=== PATIENT | female | born 1930 | race Caucasian/White ===

== ENCOUNTER 2017-02-23 13:10 | Inpatient (IN) | payer MEDICARE, BC ==
[2017-02-23] MEDS ORDERED: Sodium Chloride 0.9% 10 ML Syringe FLUSH PRN (13:18)
[2017-02-23] MEDS ORDERED: Sodium Chloride 0.9% 1,000 ML IV ONE (13:19)
--- NOTE | 2017-02-23 13:20 | EDM.PDOC ---
ED HPI GENERAL MEDICAL PROBLEM - General Chief Complaint: Neuro Symptoms/Deficits Stated Complaint: [facility] Time Seen by Provider: 02/23/17 13:17 Source of Information: Reports: Patient History Limitations: Reports: Altered Mental Status - History of Present Illness INITIAL COMMENTS - FREE TEXT/NARRATIVE: The patient is an 86-year-old female with a history of atrial fibrillation who is brought in by EMS after being found down at home. She apparently didn't show up to breakfast with friends today. When EMS arrived to her house, she was found wedged between the bed and the wall. She was covered in urine and it appeared that she had been stuck there for some time. She hasn't been able to speak which greatly limits the history. According to family, she was last seen normal on Thursday the review of her cellphone suggests that she was able to use her phone on Thursday which is 2 days ago. According to EMS, she seems like she is weak on the right side and is only intermittently following commands and has been awake but hasn't been able to speak, EMS states that she was at sometimes shaking her head yes or no to their questions. - Related Data Allergies Allergy/AdvReac Type Severity Reaction Status Date / Time Penicillins Allergy Cannot Verified 02/23/17 13:21 Remember quinidine Allergy Other Verified 02/23/17 13:20 Home Meds: Home Meds ALPRAZolam [Xanax] 0.5 mg PO BID PRN 09/11/14 [History] Ascorbate Calcium [Vitamin C] 500 tab PO DAILY 09/11/14 [History] Aspirin [Adult Low Dose Aspirin EC] 81 mg PO BEDTIME 09/11/14 [History] Atenolol 25 mg PO DAILY 09/11/14 [History] Calcium Carbonate/Vitamin D3 [Calcium 600 + Vit D 400] 1 tab PO DAILY 09/11/14 [ History] Glucosa Denton 2KCl/Chondroitin Denton [Glucosamine-Chondroitin Cap] 1 cap PO DAILY [History] Levothyroxine [Synthroid] 100 mcg PO DAILY 09/11/14 [History] Losartan [Cozaar] 50 mg PO DAILY 09/11/14 [History] Multivitamin [Multivitamins] 1 cap PO DAILY 09/11/14 [History] Sertraline [Zoloft] 100 mg PO DAILY 09/11/14 [History] Rivaroxaban [Xarelto] 10 mg PO BEDTIME 10/21/14 [History] Pantoprazole Sodium [Protonix] 40 mg PO DAILY 02/23/17 [History] Pravastatin [Pravachol] 10 mg PO BEDTIME 02/23/17 [History] Social & Family History - Tobacco Use Smoking Status *Q: Never Smoker Years of Tobacco use: 1 Used Tobacco, but Quit: Yes Month Tobacco Last Used: Second Hand Smoke Exposure: No - Alcohol Use Days Per Week of Alcohol Use: 0 - Recreational Drug Use Recreational Drug Use: No ED ROS GENERAL - Review of Systems Review Of Systems: Unable To Obtain ED EXAM, NEURO - Physical Exam Exam: See Below Exam Limited By: Altered Mental Status General Appearance: Other (Awake, not able to speak, not following commands at this time) Eye Exam: Bilateral Eye: PERRL Ears: Normal External Exam Nose: Normal Inspection Throat/Mouth: Other (Very dry mucous membranes) Head Exam: Atraumatic, Normocephalic Neck: Other (C-collar in place) Respiratory/Chest: No Respiratory Distress, Lungs Clear, Normal Breath Sounds, No Accessory Muscle Use, Chest Non-Tender Cardiovascular: No Edema, Tachycardia, Irregularly Irregular GI/Abdominal: Soft, Non-Tender, No Distention. No: Rebound Neurological: Alert, Other (Awake, she does not cooperate with the exam and is not following commands at this time, no speech, right upper extremity and right lower extremity are both flaccid. She does have some movement observed of the left upper and lower extremities, antigravity. +R facial droop) Back Exam: Normal Inspection Extremities: Other (Scattered abrasions on the posterior surface of her left hand, abrasions to the fingers) Skin Exam: Warm, Dry, Intact, No Rash Course - Orders/Labs/Meds Orders: Active Orders 24 hr Category Date Time Status EKG 12 Lead [EKG Documentation Completion] [RC] STAT Care 02/23/17 13:18 Active Peripheral IV Care [RC] . DIRECTED Care 02/23/17 13:18 Active Hip wo Cont Rt [CT] Stat Exams 02/23/17 16:46 Taken Sodium Chloride 0.9% [Normal Saline] 100 ml Med 02/23/17 14:30 Active IV ASDIRECTED Sodium Chloride 0.9% [Saline Flush] Med 02/23/17 13:18 Active 10 ml FLUSH ASDIRECTED PRN Peripheral IV Insertion Adult [OM.PC] Routine Oth 02/23/17 13:18 Ordered Medication Orders Sodium Chloride (Normal Saline) 100 mls @ 60 mls/hr IV ASDIRECTED ALYSON Last Admin: 02/23/17 15:39 Dose: 60 mls/hr Sodium Chloride (Saline Flush) 10 ml FLUSH ASDIRECTED PRN PRN Reason: Keep Vein Open Last Admin: 02/23/17 14:00 Dose: 10 ml Labs: Laboratory Tests 02/23/17 02/23/17 02/23/17 Range/Units 13:32 13:32 13:32 WBC 11.23 H (3.98-10.04) K/mm3 RBC 4.73 (3.98-5.22) M/mm3 Hgb 13.8 (11.2-15.7) gm/L Hct 39.2 (34.1-44.9) % MCV 82.9 (79.4-94.8) fl MCH 29.2 (25.6-32.2) pg MCHC 35.2 (32.2-35.5) g/dl RDW Std Deviation 47.9 H (36.4-46.3) fL Plt Count 244 (182-369) K/mm3 MPV 10.2 (9.4-12.3) fl Neut % (Auto) 89.4 H (34.0-71.1) % Lymph % (Auto) 2.9 L (19.3-51.7) % Hodgeman % (Auto) 7.4 (4.7-12.5) % Eos % (Auto) 0 L (0.7-5.8) Baso % (Auto) 0.1 (0.1-1.2) % Neut # (Auto) 10.04 H (1.56-6.13) K/mm3 Lymph # (Auto) 0.33 L (1.18-3.74) K/mm3 Hodgeman # (Auto) 0.83 H (0.24-0.36) K/mm3 Eos # (Auto) 0.00 L (0.04-0.36) K/mm3 Baso # (Auto) 0.01 (0.01-0.08) K/mm3 Manual Slide Review Abnormal smear PT 11.1 (8.0-13.0) SECONDS INR 1.02 Sodium 131 L (136-145) mEq/L Potassium 3.6 (3.5-5.1) mEq/L Chloride 93 L (98-107) mEq/L Carbon Dioxide 27 (21-32) mEq/L Anion Gap 14.6 (5-15) BUN 25 H (7-18) mg/dL Creatinine 0.8 (0.55-1.02) mg/dL Est Cr Clr Drug Dosing TNP Estimated GFR (MDRD) > 60 (>60) mL/min BUN/Creatinine Ratio 31.3 H (14-18) Glucose 117 H (83-115) mg/dL Calcium 8.3 L (8.5-10.1) mg/dL Magnesium 2.2 (1.8-2.4) mg/dl Total Bilirubin 1.3 H (0.2-1.0) mg/dL AST 60 H (15-37) U/L ALT 70 H (14-59) U/L Alkaline Phosphatase 87 (46-116) U/L Creatine Kinase 754 H (26-192) U/L Troponin I 0.019 (0.00-0.056) ng/mL NT-Pro-B Natriuret Pep 5417 H (0-450) pg/mL Total Protein 7.4 (6.4-8.2) g/dl Albumin 3.3 L (3.4-5.0) g/dl Globulin 4.1 gm/dL Albumin/Globulin Ratio 0.8 L (1-2) Urine Color (Yellow) Urine Appearance (Clear) Urine pH (5.0-8.0) Ur Specific Opdyke (1.005-1.030) Urine Protein (Negative) Urine Glucose (UA) (Negative) Urine Ketones (Negative) Urine Occult Blood (Negative) Urine Nitrite (Negative) Urine Bilirubin (Negative) Urine Urobilinogen (0.2-1.0) Ur Leukocyte Esterase (Negative) Urine RBC (0-5) /hpf Urine WBC (0-5) /hpf Ur Epithelial Cells (0-5) /hpf Amorphous Sediment (NOT SEEN) /hpf Urine Bacteria (FEW) /hpf Fine Granular Casts (0-5) /lpf Coarse Granular Casts (0-5) /hpf Urine Mucus (FEW) /hpf 02/23/ Range/Units 15:44 WBC (3.98-10.04) K/mm3 RBC (3.98-5.22) M/mm3 Hgb (11.2-15.7) gm/L Hct (34.1-44.9) % MCV (79.4-94.8) fl MCH (25.6-32.2) pg MCHC (32.2-35.5) g/dl RDW Std Deviation (36.4-46.3) fL Plt Count (182-369) K/mm3 MPV (9.4-12.3) fl Neut % (Auto) (34.0-71.1) % Lymph % (Auto) (19.3-51.7) % Hodgeman % (Auto) (4.7-12.5) % Eos % (Auto) (0.7-5.8) Baso % (Auto) (0.1-1.2) % Neut # (Auto) (1.56-6.13) K/mm3 Lymph # (Auto) (1.18-3.74) K/mm3 Hodgeman # (Auto) (0.24-0.36) K/mm3 Eos # (Auto) (0.04-0.36) K/mm3 Baso # (Auto) (0.01-0.08) K/mm3 Manual Slide Review PT (8.0-13.0) SECONDS INR Sodium (136-145) mEq/L Potassium (3.5-5.1) mEq/L Chloride (98-107) mEq/L Carbon Dioxide (21-32) mEq/L Anion Gap (5-15) BUN (7-18) mg/dL Creatinine (0.55-1.02) mg/dL Est Cr Clr Drug Dosing Estimated GFR (MDRD) (>60) mL/min BUN/Creatinine Ratio (14-18) Glucose (83-115) mg/dL Calcium (8.5-10.1) mg/dL Magnesium (1.8-2.4) mg/dl Total Bilirubin (0.2-1.0) mg/dL AST (15-37) U/L ALT (14-59) U/L Alkaline Phosphatase (46-116) U/L Creatine Kinase (26-192) U/L Troponin I (0.00-0.056) ng/mL NT-Pro-B Natriuret Pep (0-450) pg/mL Total Protein (6.4-8.2) g/dl Albumin (3.4-5.0) g/dl Globulin gm/dL Albumin/Globulin Ratio (1-2) Urine Color Yellow (Yellow) Urine Appearance Clear (Clear) Urine pH 6.5 (5.0-8.0) Ur Specific [place] 1.025 (1.005-1.030) Urine Protein 3+ H (Negative) Urine Glucose (UA) Negative (Negative) Urine Ketones 2+ H (Negative) Urine Occult Blood 2+ H (Negative) Urine Nitrite Negative (Negative) Urine Bilirubin 1+ H (Negative) Urine Urobilinogen 0.2 (0.2-1.0) Ur Leukocyte Esterase Negative (Negative) Urine RBC 10-20 H (0-5) /hpf Urine WBC 0-5 (0-5) /hpf Ur Epithelial Cells 0-5 (0-5) /hpf Amorphous Sediment Few H (NOT SEEN) /hpf Urine Bacteria Few (FEW) /hpf Fine Granular Casts 0-5 (0-5) /lpf Coarse Granular Casts 0-5 (0-5) /hpf Urine Mucus Few (FEW) /hpf Meds: Medications Generic Name Dose Route Start Last Admin Trade Name Freq PRN Reason Stop Dose Admin Sodium Chloride 100 mls @ 60 mls/hr 02/23/17 14:30 02/23/17 15:39 Normal Saline IV 60 mls/hr ASDIRECTED ALYSON Administration Sodium Chloride 10 ml 02/23/17 13:18 02/23/17 14:00 Saline Flush FLUSH 10 ml ASDIRECTED PRN Administration Keep Vein Open Discontinued Medications Generic Name Dose Route Start Last Admin Trade Name Freq PRN Reason Stop Dose Admin Diltiazem HCl 10 mg 02/23/17 14:21 02/23/17 14:31 Diltiazem IVPUSH 02/23/17 14:22 10 mg ONETIME ONE Administration Fentanyl 25 mcg 02/23/17 16:11 02/23/17 16:16 Sublimaze IVPUSH 02/23/17 16:12 25 mcg ONETIME ONE Administration Fentanyl 25 mcg 02/23/17 18:20 02/23/17 18:25 Sublimaze IVPUSH 09/25/17 18:21 25 mcg ONETIME ONE Administration Gadobenate Dimeglumine 15 ml 02/23/17 15:21 02/23/17 15:39 Multihance IVPUSH 02/23/17 15:22 15 ml ONETIME ONE Administration Sodium Chloride 1,000 mls @ 1,000 mls/hr 02/23/17 13:19 02/23/17 13:49 Normal Saline IV 02/23/17 14:18 1,000 mls/hr ONETIME ONE Administration Iopamidol 100 ml 02/23/17 14:23 02/23/17 15:39 Isovue-370 (76%) IVPUSH 02/23/17 14:24 100 ml ONETIME ONE Administration Sodium Chloride 10 ml 02/23/17 14:23 02/23/17 15:39 Saline Flush FLUSH 02/23/17 14:24 10 ml ONETIME ONE Administration - Re-Assessments/Exams Free Text/Narrative Re-Assessment/Exam: 02/23/17 14:29 CT head on my read shows some loss of the roque-white differentiation in the left MCA distribution. Her mediastinum looks wide on portable chest x-ray, it does look different compared to prior, we will scan chest to rule out dissection. Her creatinine is normal. Also review of her pelvis fracture shows a right femoral neck fracture. Dedicated hip x-rays ordered. Family updated. 02/23/17 17:58 MRI shows multiple areas of diffusion abnormalities within the left basal ganglia and left thalamus as well as the left frontal temporal and parietal regions compatible with fairly acute multifocal infarcts in the distribution of the MCA as well as is within the deep lenticulostriate arteries there is increased signal on the FLAIR sequence within these findings compatible with irreversible infarcts according to the radiology read. Low signal in the diffusion sequence and within a gradient echo sequence within the basal ganglia on the left side compatible with slight areas of hemorrhage which are felt to be small and below the resolution of the CT. I discussed these results with the family. Given that the patient has last known well time of 2 days ago and evidence of irreversible infarction on the MRI the patient is really not a candidate for any intervention for her stroke. Care will be supportive at this time. X-ray of the right pelvis shows the right hip is significantly internally rotated making it difficult to exclude a femoral neck fracture. I discussed with radiologist Dr. Medeiros who agrees a CT scan would be needed to rule out an occult fracture. Discussed with Dr. Cain who agrees to admit the patient for further care. Chest x-ray shows no acute abnormality. EKG shows atrial fibrillation, 02/23/17 18:54 Departure - Departure Time of Disposition: 18:02 Disposition: Admitted As Inpatient 67 Clinical Impression: Stroke due to embolism of left middle cerebral artery, Dysarthria, Mild dehydration, Atrial fibrillation with rapid ventricular response - Discharge Information - My Orders Last 24 Hours: My Active Orders 02/23/17 13:18 EKG 12 Lead [EKG Documentation Completion] [RC] STAT Peripheral IV Care [RC] . DIRECTED Sodium Chloride 0.9% [Saline Flush] 10 ml FLUSH ASDIRECTED PRN Peripheral IV Insertion Adult [OM.PC] Routine 02/23/17 14:30 Sodium Chloride 0.9% [Normal Saline] 100 ml IV ASDIRECTED 02/23/17 16:46 Hip wo Cont Rt [CT] Stat - Assessment/Plan Last 24 Hours: My Active Orders 02/23/17 13:18 EKG 12 Lead [EKG Documentation Completion] [RC] STAT Peripheral IV Care [RC] . DIRECTED Sodium Chloride 0.9% [Saline Flush] 10 ml FLUSH ASDIRECTED PRN Peripheral IV Insertion Adult [OM.PC] Routine 02/23/17 14:30 Sodium Chloride 0.9% [Normal Saline] 100 ml IV ASDIRECTED 02/23/17 16:46 Hip wo Cont Rt [CT] Stat
--- NOTE | 2017-02-23 13:46 | CT ---
Head CT Technique: Multiple axial sections through the brain were obtained. Intravenous contrast was not utilized. Comparison: Previous MRI brain of 04/10/14, no previous head CT study. Findings: Ventricles along with basal cisterns and sulci over convexities are mildly prominent. Mild diminished density is noted within portions of the periventricular, subcortical white matter and within portions of the basal ganglia. Slight increased density is noted within the head of the caudate nuclei both sides believed to be made more prominent due to small vessel ischemic demyelination change surrounding the thalami. No other abnormal parenchymal densities are seen. No evidence of intracranial hemorrhage. No midline shift or mass effect is seen. Bone window settings were reviewed which shows mild mucosal thickening within the ethmoid and frontal sinuses. No acute calvarial abnormality is identified. Impression: 1. Senescent change as described above. No acute intracranial abnormality is seen. If patient's symptoms warrant further evaluation, MRI brain could be considered. Diagnostic code #2
--- NOTE | 2017-02-23 13:48 | CT ---
CT cervical spine Technique: Multiple axial sections were obtained from above C1 inferiorly to below T1. Reconstructed sagittal and coronal images were reviewed. Findings: Mild scattered disc space narrowing is seen. Diffuse degenerative apophyseal change is seen throughout the cervical spine. Degenerative change within the uncovertebral joints are seen most prominent at C5-C6 and C6-C7. Moderate left-sided neural foraminal stenosis is noted at C4-C5. Mild bilateral neural foraminal stenosis is noted at C5-C6. No bony central canal stenosis is seen. No fracture is identified. No abnormal subluxation is seen. Impression: 1. Degenerative change as noted above. 2. Nothing acute is identified on CT study of the cervical spine. Diagnostic code #2
[2017-02-23] MEDS ORDERED: Diltiazem 25 MG/5 ML SDV IVPUSH ONE (14:21)
[2017-02-23] MEDS ORDERED: Iopamidol 755 Mg/ML 100 ML Bottle IVPUSH ONE (14:23)
[2017-02-23] MEDS ORDERED: Sodium Chloride 0.9% 10 ML Syringe FLUSH ONE (14:23)
[2017-02-23] MEDS ORDERED: Sodium Chloride 0.9% 100 ML IV SCH (14:30)
[2017-02-23] MEDS ORDERED: Gadobenate Dimeglumine 529 MG/ML 15 ML SDV IVPUSH ONE (15:21)
[2017-02-23] MEDS ORDERED: fentaNYL 100 MCG/2 ML SDV IVPUSH ONE ×2 (16:11→18:20)
--- NOTE | 2017-02-23 16:13 | MR ---
MRI brain (with and without contrast) Technique: T1 sagittal; T2, T2 FLAIR, T1 and diffusion axial; T1 coronal; T2 gradient echo; post contrast T1 axial and post contrast T1 and FLAIR coronal images were obtained. Comparison: Previous head CT study of 02/23/17 and MRI brain of 04/10/14. Findings: Acute diffusion abnormalities are seen within the anterior aspect of the left temporal lobe and around the sylvian fissure as well as within a portion of the posterior left frontal and anterior parietal regions. Diffusion findings are also seen within the left basal ganglia including head of the left caudate nucleus. There are some low signal findings within the left basal ganglia presumably due to minimal areas of hemorrhage which are below the resolution of CT exam. Other smaller diffusion abnormalities are scattered within the posterior left parietal region. No right-sided diffusion abnormalities are seen. There is mild increased signal seen on the FLAIR sequence within these areas of diffusion abnormalities compatible with irreversible stroke. Other areas of increased signal are seen within the periventricular white matter compatible with small vessel ischemic demyelination change. There is very slight mass effect upon the left lateral ventricle being seen. No abnormal areas of enhancement are seen. No midline shift is identified. Impression: 1. Multiple areas of diffusion abnormalities are seen within the left basal ganglia including left thalamus as well as within the left frontal, temporal and parietal regions compatible with fairly acute multifocal infarcts in the distribution of the MCA as well as within the deep left lenticulostriate arteries. There is increased signal on the FLAIR sequence within these findings compatible with irreversible infarcts. 2. Basal ganglia infarct causes slight mass effect upon the left lateral ventricle but no midline shift is seen. 3. Low signal is seen on the diffusion sequence and within a gradient echo sequence within the basal ganglia on the left side compatible with slight areas of hemorrhage which are felt to be small and below the resolution of recent CT exam. Diagnostic code #3
--- NOTE | 2017-02-23 16:13 | CT ---
CT chest Technique: Multiple axial sections through the chest were obtained. Intravenous contrast was utilized. Study has been performed as a pulmonary angiogram protocol. Findings: Pulmonary arteries are well-opacified. No filling defects are seen to indicate pulmonary embolism. Aorta shows no dissection or aneurysm. Mild atherosclerotic change is seen within the aorta. Mediastinum and hilar regions show no adenopathy or mass. Mild coronary artery calcification is seen. No pericardial thickening is seen. Heart is mildly enlarged. Small portion of the visualized upper abdominal structures are within normal limits. Small bilateral pleural effusions are seen with mild adjacent compressive atelectasis. Lungs otherwise are clear. Impression: 1. No findings of pulmonary embolism. 2. Small bilateral pleural effusions with adjacent compressive type atelectasis. 3. Coronary artery calcification with mild cardiomegaly. 4. No acute abnormality is seen within the thoracic aorta. Diagnostic code #2
--- NOTE | 2017-02-23 16:13 | CR ---
Chest: Portable view of the chest was obtained. Comparison: Prior chest x-ray of 09/11/14. Heart is enlarged. Tortuous thoracic aorta is seen. Lungs are clear with no acute infiltrates. Impression: 1. Cardiomegaly with nothing acute being seen on portable chest x-ray. Diagnostic code #2
--- NOTE | 2017-02-23 16:13 | CR ---
Addendum: Study was a pelvis and right hip exam and not left hip. Other portions of the dictation remain the same. If patient has sufficient symptoms to warrant further evaluation, CT could be considered. --- Addendum1 above dictated on [02/23/2017 16:48] by [Lisbeth Medeiros, Jag Levin] --- --- Addendum1 above signed on [02/23/2017 16:49] by [Lisbeth Medeiros Hilton J.] --- --- Original report below dictated on [02/23/2017 15:22] by [Lisbeth Medeiros, Jag Levin] --- --- Original report below signed on [02/23/2017 16:09] by [Lisbeth Medeiros, Jag Levin] --- Pelvis and left hip: AP view of the pelvis was obtained as well as lateral views of the left hip. Osteopenia is present. Mild joint space narrowing is seen within the left hip. Surgical clips are seen within the pelvis as well as overlying the left inferior pubic bone. No acute fracture or other bony abnormality is seen. Impression: 1. Mild degenerative change within the left hip. Other incidental findings. 2. Nothing acute is appreciated. Diagnostic code #2 --- Addendum1 signed ---
--- NOTE | 2017-02-23 19:06 | PCM.HP ---
H&P History of Present Illness - General Date of Service: 02/23/17 Admit Problem/Dx: CVA Source of Information: Patient, Family, Old Records, Provider, RN Notes Reviewed History Limitations: Reports: Language Barrier, Physical Impairment - History of Present Illness Initial Comments - Free Text/Narative: This is a 86-year-old elderly white female with past medical history of hypertension, hyperlipidemia, coronary artery disease, hypothyroidism, anxiety and depression who presents to the emergency department after she was found being down at home. EMS found her wedged between bed and the wall. And based on info gathered from secondary sources, it appeared that she may have been stuck there for sometime. On presentation to the emergency department, she was not able to speak or make a sound. She was also weak on right side and intermittently able to follow commands. She responded to basic yes or no questions by shaking her head. Her last known well was this past Thursday according to family. Patient carries a past medical history of chronic atrial fibrillation on xarelto. Her initial vital signs noted in the emergency department are heart rate between 118-123, blood pressure of 147/94, respiratory rate between 18-22 and O2 sat between 95-100% on 2 L nasal cannula. Her initial workup shows a CBC remarkable for WBCs of 11.23, neutrophils of 89.4, and lymphocytes of 2.9. Her chemistry is remarkable for sodium of 131, chloride of 93, BUN 25, glucose of 117, calcium of 8.3, total bilirubin of 1.3, AST of 60, ALT of 70, creatinine kinase of 754, proBNP of 5417, and albumin of 3.3. Her UA is not suggestive of UTI. Head CT scan shows no acute intra-cranial abnormality but brain MRI confirms acute multi-focal infarct in the distribution MCA and basal ganglia. Chest CTA shows small bilateral pleural effusions with adjacent compressive atelectasis. Coronary artery calcification with cardiomegaly. Hip x-ray showed mild degenerative changes within the left hip but felt she may have occult femoral neck fracture. Her CT scan is still pending. Patient is being admitted for medical management of acute multi-focal stroke. Her CODE STATUS is to be determined. - Related Data Allergies/Adverse Reactions: Allergies Allergy/AdvReac Type Severity Reaction Status Date / Time Penicillins Allergy Cannot Verified 02/23/17 13:21 Remember quinidine Allergy Other Verified 02/23/17 13:20 Home Medications: Home Meds ALPRAZolam [Xanax] 0.5 mg PO BID PRN 09/11/14 [History] Ascorbate Calcium [Vitamin C] 500 tab PO DAILY 09/11/14 [History] Aspirin [Adult Low Dose Aspirin EC] 81 mg PO BEDTIME 09/11/14 [History] Atenolol 25 mg PO DAILY 09/11/14 [History] Calcium Carbonate/Vitamin D3 [Calcium 600 + Vit D 400] 1 tab PO DAILY 09/11/14 [ History] Glucosa [place] 2KCl/Chondroitin Denton [Glucosamine-Chondroitin Cap] 1 cap PO DAILY [History] Levothyroxine [Synthroid] 100 mcg PO DAILY 09/11/14 [History] Losartan [Cozaar] 50 mg PO DAILY 09/11/14 [History] Multivitamin [Multivitamins] 1 cap PO DAILY 09/11/14 [History] Sertraline [Zoloft] 100 mg PO DAILY 09/11/14 [History] Rivaroxaban [Xarelto] 10 mg PO BEDTIME 10/21/14 [History] Pantoprazole Sodium [Protonix] 40 mg PO DAILY 02/23/17 [History] Pravastatin [Pravachol] 10 mg PO BEDTIME 02/23/17 [History] Past Medical History Cardiovascular History: Reports: Afib, Hypertension 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 Exam - Exam Exam: See Below - Vital Signs Weight: 70.307 kg - Exam General: Alert, Cooperative, Other (Unable to understand her language (gibberish )). No: Mild Distress HEENT: Conjunctiva Clear, Hearing Intact, Nares Patent, Pupils Equal, Pupils Reactive, Other (Right sided facial droop) Neck: Supple, Trachea Midline Lungs: Normal Respiratory Effort, Decreased Breath Sounds Cardiovascular: Irregular Rhythm GI/Abdominal Exam: Normal Bowel Sounds, Soft, Non-Tender (Female) Exam: Deferred Rectal (Female) Exam: Deferred Back Exam: Normal Inspection, Decreased Range of Motion Extremities: Normal Inspection (both legs), Normal Range of Motion (left), Non- Tender (left) Peripheral Pulses: 2+: Posterior Tibial (L), Posterior Tibial (R), Dorsalis Pedis (L), Dorsalis Pedis (R) Skin: Dry, Intact Neurological: Focal Deficit, Abnormal Gait. No: Reflexes Equal Bilateral, Strength Equal Bilateral, Normal Speech, Normal Tone, Sensation Intact Neuro Extensive - Mental Status: Alert, Other (She is able to follow simple commands) Neuro Extensive - Motor, Sensory, Reflexes: Motor/Sensory Deficits (Left upper and lower extremity) Psychiatric: Alert. No: Normal Affect - Patient Data Result Diagrams: 02/23/17 13:32 02/23/17 13:32 *Q Meaningful Use (ADM) - VTE *Q VTE Criteria *Q: - Stroke *Q Stroke Criteria *Q: - AMI *Q AMI Criteria *Q: Problem List Initiated/Reviewed/Updated: Yes Orders Last 24hrs: Medication Orders Sodium Chloride (Normal Saline) 100 mls @ 60 mls/hr IV ASDIRECTED [facility] Last Admin: 02/23/17 15:39 Dose: 60 mls/hr Sodium Chloride (Saline Flush) 10 ml FLUSH ASDIRECTED PRN PRN Reason: Keep Vein Open Last Admin: 02/23/17 14:00 Dose: 10 ml Assessment/Plan Comment:: Assessment/Plan: Acute: Acute Multi-focal Stroke in the MCA Distribution and Basal Ganglia - Risk factors: HTN, HLD, CAD and Chronic Atrial Fibrillation - Brain MRI: multiple stroke - I believe she went into A-fib with RVR; would explain multiple stroke - She has residual deficits of left sided hemiplegia, right facial droop and expressive aphasia - Secondary stroke prevention, and lipid panel in AM - Telemetry to control HR - SURGICAL ORDERLY/PT/OT eval - SNF/Rehab placement Broca's Aphasia/Expressive Aphasia - She was not able to speak or make sound when she presented to ED - On the floor, she can produce sound but gibberish - She can understand me but not able to communicate Elevated Pro-BNP Level - Likely 2/2 Small B/L Pleural Effusion and Uncontrolled Atrial Fibrillation - Admission level 5417; repeat level in am - 2D echo in AM - Salt restriction Anticipate Worsening of Depression - She is able to speak but could not make words that we could understand ( Broca's Aphasia) - Hold Zoft 100 mg po daily home regimen until SURGICAL ORDERLY eval - Would expect frustration due to inability to communicate Chronic: HTN HLD CAD on Chest CTA Hypothyrodisim Anxiety Depression Plan: Admit to Med-Surge With Tele Routine AM Labs Resume Home Meds Dietary consult PT/OT/SURGICAL ORDERLY consult SW/CM for d/c planning Need images/pictures for communicate with staff She need Rehab/SNF Code status: TBD Additional orders as above Met and spoke with family present at bedside. Informed them, she had multiple stroke likely from her chronic Atrial Fibrillation. Goal at this point is secondary prevention and regaining function of extremities and improving communication and or speech +/- swallowing.
[2017-02-23] MEDS ORDERED: Promethazine 12.5 MG in Sodium Chloride 0.9% 50 ML IV PRN (20:00)
[2017-02-23] MEDS ORDERED: LORazepam 2 MG/ML MDV IV PRN (20:00)
[2017-02-23] MEDS ORDERED: Ondansetron 4 MG/2 ML SDV IV PRN (20:00)
[2017-02-23] MEDS ORDERED: Albuterol/Ipratropium 3.0-0.5 MG/3 ML Neb Soln NEB PRN (20:00)
[2017-02-23] MEDS ORDERED: hydrALAZINE 20 MG/ML SDV IVPUSH PRN (20:07)
[2017-02-23] MEDS ORDERED: Dextrose 5%-0.9% NaCl 1,000 ML IV SCH (20:15)
[2017-02-23] MEDS: HYDROmorphone 0.5 MG/0.5 ML Syringe IVPUSH PRN ×2 (20:35→23:36)
[2017-02-23] MEDS: Metoprolol Tartrate 5 MG/5 ML SDV IVPUSH PRN (20:41)
[2017-02-24] MEDS ORDERED: LORazepam 2 MG/ML MDV IVPUSH PRN ×2 (00:01→01:47)
[2017-02-24] MEDS: Metoprolol Tartrate 5 MG/5 ML SDV IVPUSH PRN (00:46)
[2017-02-24] MEDS ORDERED: cloNIDine 0.2 MG/Day Transdermal Patch TRDERM ONE (01:00)
[2017-02-24] MEDS ORDERED: Scopolamine 1.5 MG Transdermal Patch TRDERM ONE (01:00)
[2017-02-24] MEDS ORDERED: Morphine 2 MG/ML Syringe IVPUSH ONE (01:30)
[2017-02-24] MEDS ORDERED: Morphine 4 MG/ML Syringe IVPUSH PRN (01:44)
--- NOTE | 2017-02-24 01:44 | PCM.SN ---
- Free Text/Narrative Note: I was alerted by the night's charge nurse about the patient's sudden clinical deterioration. Patient has been giving signs overnight of an pending respiratory decline or arrest. Family was warned about her dysphagia affecting her breathing and could lead to aspiration. This exactly what happened and now patient is in respiratory distress. Since she is DNR/DNI, family did not want her intubated. So they decided to make her comfortable. Her code status was immediately changed to DNR/DNI/Comfort Measures.
[2017-02-24 03:55] VITALS: BP 150/95
--- NOTE | 2017-02-24 07:50 | CT ---
CT right hip Technique: Multiple axial sections through the right hip were obtained. Reconstructed coronal and sagittal images were reviewed. Findings: Lal catheter is seen within the bladder. Calcified uterine fibroids are incidentally noted. Mild degenerative change is noted within the right hip. No hip fracture is seen. No fracture is identified within the visualized right side of the pelvis. Degenerative change is partially seen within the lumbar spine. Impression: 1. No acute fracture identified within the right hip or visualized right side of the pelvis. 2. Other incidental findings as noted above. Diagnostic code #2 MTDD
--- NOTE | 2017-02-24 08:58 | PCM.DCSUM1 ---
Discharge Summary - Hospital Course Brief History: This is a 86-year-old elderly white female with past medical history of hypertension, hyperlipidemia, coronary artery disease, hypothyroidism , anxiety and depression who presents to the emergency department after she was found being down at home. She was admitted for medical management of multi- focal stroke with significant nerulogic deficits. 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 SNOMED Code(s): 779372003, 793751691, 922984606 ICD Code: I69.353 - HEMIPLGA FOLLOWING CEREBRAL INFRC AFF RIGHT NONDOM SIDE Status: Acute Qualifiers: Hemiplegia type: flaccid Qualified Code(s): G81.03 - Flaccid hemiplegia affecting right nondominant side; I63.9 - Cerebral infarction, unspecified (2) Respiratory distress SNOMED Code(s): 889797569 ICD Code: R06.00 - DYSPNEA, UNSPECIFIED Status: Acute (3) Aspiration into airway SNOMED Code(s): 955898931 ICD Code: T17.908A - UNSP FB IN RESP TRACT, PART UNSP CAUSING OTH INJURY, INIT Status: Acute Qualifiers: Encounter type: initial encounter Qualified Code(s): T17.908A - Unspecified foreign body in respiratory tract, part unspecified causing other injury, initial encounter (4) Stroke due to embolism of left middle cerebral artery SNOMED Code(s): 365897792, 475791876 ICD Code: I63.412 - CEREB INFRC DUE TO EMBOLISM OF LEFT MIDDLE CEREBRAL ARTERY Status: Acute (5) Expressive aphasia SNOMED Code(s): 447578911 ICD Code: R47.01 - APHASIA Status: Acute (6) 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 SNOMED Code(s): 02592316 ICD Code: I63.9 - CEREBRAL INFARCTION, UNSPECIFIED; R47.01 - APHASIA Status : Acute - Patient Summary/Data Operative Procedure(s) Performed: None Complications: None Consults: Consultations 02/23/17 20:04 Consult to Case Management [CONS] Routine 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 She carried a past medical hx/o chronic atrial fibrillation on xarelto. Patient was found at her residence wedged between her bed and the wall with unknown duration. On presentation to the emergency department, she was not able to speak or make a sound. She was also weak on right side and intermittently able to follow commands. However she responded to basic yes or no questions by shaking her head. Her initial vital signs noted in the emergency department were heart rate between 118-123, blood pressure of 147/94, respiratory rate between 18-22 and O2 sat between 95-100% on 2 L nasal cannula. Her initial workup showed a CBC remarkable for WBCs of 11.23, neutrophils of 89.4, and lymphocytes of 2.9. Her chemistry was remarkable for sodium of 131, chloride of 93, BUN 25, glucose of 117, calcium of 8.3, total bilirubin of 1.3, AST of 60, ALT of 70, creatinine kinase of 754, proBNP of 5417, and albumin of 3.3. Her UA was not suggestive of UTI. Head CT scan showed no acute intra-cranial abnormality but brain MRI confirmed acute multi-focal infarct in the distribution MCA and basal ganglia. Chest CTA showed small bilateral pleural effusions with adjacent compressive atelectasis. Coronary artery calcification with cardiomegaly. Hip x-ray showed mild degenerative changes within the left hip but felt she may have occult femoral neck fracture. Her Hip CT scan showed no acute fracture per radiology report. Patient was admitted for medical management of acute multi-focal stroke. She received initial treatment in the emergency department before she was sent to the floor for further management. On the floor, we continued basic treatment and supportive care. We discussed stroke care plan with family and made them aware that all we could do for her at that point was secondary prevention and treatment with the goal of regaining mobility, extremity function, and assess swallowing and speech capability. At the time of my examination, the patient was able to understand me but unable to communicate. Her words were gibberish and unintelligible. And despite being right handed, we were not able to read her hand writing in her attempt to communicate with us. On the night of admission, her family was warned about possible worsening of her dysphagia or poor oral control. These two could possibly affect her respiration and lead to hemodynamic instability. She seemed to be breathing okay but at about the same time, she was showing some signs of an impeding respiratory issues. As night falls she was able to get comfortable. However during the early hours, her vital signs started to get worse. Her blood pressure slowly went up as well as her heart rate. Her O2 also started to drop as low as mid 70s. The patient went into acute distress. She was struggling to breath despite increased oxygen flow. She also was making gurgling noise coming her mouth. Immediately, I was alerted by overnight charge nurse due to acute respiratory distress. Rapid response was activated and right away, I ran out from my office to examine the patient with family at bedside. Staff tend to her while we pulled her family outside the hallway to re-address her code status. I offered to put a tube in her throat to help with breathing but family refused it and decided to just make her comfortable. At that moment, patient status was changed to comfort measures only. Not long before she was made comfortable, the patient stopped breathing and w/o heart beat or pulse. Her exact time of was 0207. Her cause of was likely due to aspiration from worsening dysphagia and or poor oral secretion control. - Patient Instructions Other/Special Instructions: - Patient early this morning. - Discharge Plan Home Medications: Home Meds ALPRAZolam [Xanax] 0.5 mg PO BID PRN 09/11/14 [History] Ascorbate Calcium [Vitamin C] 500 tab PO DAILY 09/11/14 [History] Aspirin [Adult Low Dose Aspirin EC] 81 mg PO BEDTIME 09/11/14 [History] Atenolol 25 mg PO DAILY 09/11/14 [History] Calcium Carbonate/Vitamin D3 [Calcium 600 + Vit D 400] 1 tab PO DAILY 09/11/14 [ History] Glucosa [place] 2KCl/Chondroitin D[place] [Glucosamine-Chondroitin Cap] 1 cap PO DAILY [History] Levothyroxine [Synthroid] 100 mcg PO DAILY 09/11/14 [History] Losartan [Cozaar] 50 mg PO DAILY 04/13/15 [History] Multivitamin [Multivitamins] 1 cap PO DAILY 09/11/14 [History] Sertraline [Zoloft] 100 mg PO DAILY 09/11/14 [History] Rivaroxaban [Xarelto] 10 mg PO BEDTIME 10/21/14 [History] Pantoprazole Sodium [Protonix] 40 mg PO DAILY 02/23/17 [History] Pravastatin [Pravachol] 10 mg PO BEDTIME 02/23/17 [History] Referrals: Abraham Lyman MD [Primary Care Provider] - - Discharge Summary/Plan Comment DC Time >30 min.: No Discharge Summary/Plan Comment: Patient early this morning. - General Info Date of Service: 02/24/17 Admission Dx/Problem (Free Text: CVA Subjective Update: Respiratory Distress - Review of Systems Systems Review Comment: Patient is - Patient Data Vitals - Most Recent: Last Vital Signs Temp 36.3 C 02/23/17 23:00 Pulse 127 H 02/24/17 00:48 Resp 16 02/23/17 23:00 BP 150/95 H 02/24/17 00:48 Pulse Ox 93 L 02/24/17 01:00 Weight - Most Recent: 70.307 kg I&O - Last 24 hours: Intake & Output 02/23/17 02/24/17 02/24/17 22:59 06:59 14:59 Output Total 575 Balance -575 Med Orders - Current: Current Medications Discontinued Medications Albuterol/Ipratropium (Duoneb 3.0-0.5 Mg/3 Ml) 3 ml NEB Q4HRRT PRN PRN Reason: Shortness Of Breath/wheezing Last Admin: 02/24/17 00:59 Dose: 3 ml Clonidine HCl (Catapres Tts-2) 0.2 mg TRDERM Q7D ONE Stop: 02/24/17 01:01 Last Admin: 02/24/17 03:46 Dose: Not Given Diltiazem HCl (Diltiazem) 10 mg IVPUSH ONETIME ONE Stop: 02/23/17 14:22 Last Admin: 02/23/17 14:31 Dose: 10 mg Fentanyl (Sublimaze) 25 mcg IVPUSH ONETIME ONE Stop: 02/23/17 16:12 Last Admin: 02/23/17 16:16 Dose: 25 mcg Fentanyl (Sublimaze) 25 mcg IVPUSH ONETIME ONE Stop: 02/23/17 18:21 Last Admin: 02/23/17 18:25 Dose: 25 mcg Gadobenate Dimeglumine (Multihance) 15 ml IVPUSH ONETIME ONE Stop: 02/23/17 15:22 Last Admin: 02/23/17 15:39 Dose: 15 ml Heparin Sodium (Porcine) (Heparin Sodium) 5,000 units SUBCUT Q12HR [facility] Hydralazine HCl (Apresoline) 10 mg IVPUSH Q4H PRN PRN Reason: Hypertension Hydromorphone HCl (Dilaudid) 0.25 mg IVPUSH Q2H PRN PRN Reason: Pain (severe 7-10) Last Admin: 02/23/17 23:36 Dose: 0.25 mg Sodium Chloride (Normal Saline) 1,000 mls @ 1,000 mls/hr IV ONETIME ONE Stop: 02/23/17 14:18 Last Admin: 02/23/17 13:49 Dose: 1,000 mls/hr Sodium Chloride (Normal Saline) 100 mls @ 60 mls/hr IV ASDIRECTED [facility] Last Admin: 02/23/17 15:39 Dose: 60 mls/hr Promethazine HCl 12.5 mg/ (Sodium Chloride) 50.5 mls @ 100 mls/hr IV Q6H PRN PRN Reason: Nausea/Vomiting Dextrose/Sodium Chloride (Dextrose 5%-Normal Saline) 1,000 mls @ 75 mls/hr IV ASDIRECTED [facility] Last Admin: 02/23/17 20:45 Dose: 75 mls/hr Iopamidol (Isovue-370 (76%)) 100 ml IVPUSH ONETIME ONE Stop: 02/23/17 14:24 Last Admin: 02/23/17 15:39 Dose: 100 ml Lorazepam (Ativan) 0.25 mg IV Q6H PRN PRN Reason: Anxiety Stop: 02/23/17 23:59 Last Admin: 02/23/17 23:00 Dose: 0.25 mg Lorazepam (Ativan) 0.5 mg IVPUSH Q4H PRN PRN Reason: Anxiety Last Admin: 02/24/17 01:32 Dose: 1 mg Lorazepam (Ativan) 2 mg IVPUSH Q4H PRN PRN Reason: Anxiety Magnesium Sulfate (Pharmacy To Dose - Magnesium Replacement) 1 dose .XX ASDIRECTED [facility] Metoprolol Tartrate (Lopressor) 5 mg IVPUSH Q4H PRN PRN Reason: Tachycardia Last Admin: 02/24/17 00:46 Dose: 5 mg Miscellaneous Information (Remove Patch) 1 ea TRDERM Q72H [facility] Miscellaneous Information (Remove Patch) 1 ea TRDERM Q7D [facility] Morphine Sulfate (Morphine) 1 mg IVPUSH Q1H ONE Stop: 02/24/17 01:31 Last Admin: 02/24/17 01:37 Dose: 2 mg Morphine Sulfate (Morphine) 4 mg IVPUSH Q4H PRN PRN Reason: Other Ondansetron HCl (Zofran) 4 mg IV Q6H PRN PRN Reason: Nausea/Vomiting Potassium Chloride (Pharmacy To Dose - Potassium Replacement) 1 dose .XX ASDIRECTED [facility] Scopolamine (Transderm-Scop) 1.5 mg TRDERM Q72H ONE Stop: 02/24/17 01:01 Last Admin: 02/24/17 01:38 Dose: 1.5 mg Sodium Chloride (Saline Flush) 10 ml FLUSH ASDIRECTED PRN PRN Reason: Keep Vein Open Last Admin: 02/23/17 14:00 Dose: 10 ml Sodium Chloride (Saline Flush) 10 ml FLUSH ONETIME ONE Stop: 02/23/17 14:24 Last Admin: 02/23/17 15:39 Dose: 10 ml - Exam Physical Findings Comments:: Patient is . *Q Meaningful Use (DIS) - VTE *Q VTE Criteria *Q: - Stroke *Q Stroke Criteria *Q: - AMI *Q AMI Criteria *Q:
[2017-02-24] MEDS ORDERED: Heparin Sodium 5,000 Units/ML Vial SUBCUT SCH (09:00)
== END 2017-02-24 02:07 | disposition expired | DRG 64 ==
LOC: JD.ED 13:10 → SUPCPDRO 13:10 → UNDOADMIN 18:05 → JD.MS 18:05 → UNDODISIN 02-24 02:07
PROVIDERS: ADMIT Internal Medicine; ATTEND Internal Medicine
DX: I69.322 Dysarthria following cerebral infarction (principal); E86.0 Dehydration; I48.91 Unspecified atrial fibrillation; I63.412 Cerebral infarction due to embolism of left middle cerebral artery; J69.0 Pneumonitis due to inhalation of food and vomit; I69.353 Hemiplegia and hemiparesis following cerebral infarction affecting right non-dominant side; T17.908A Unspecified foreign body in respiratory tract, part unspecified causing other injury, initial encounter; R47.01 Aphasia; R13.10 Dysphagia, unspecified; R06.00 Dyspnea, unspecified; I10 Essential (primary) hypertension; I25.10 Atherosclerotic heart disease of native coronary artery without angina pectoris; Z87.891 Personal history of nicotine dependence; E78.5 Hyperlipidemia, unspecified; E03.9 Hypothyroidism, unspecified; F32.9 Major depressive disorder, single episode, unspecified; F41.9 Anxiety disorder, unspecified; I48.2 Chronic atrial fibrillation; Z79.01 Long term (current) use of anticoagulants; Z88.0 Allergy status to penicillin; Z88.8 Allergy status to other drugs, medicaments and biological substances; Z79.82 Long term (current) use of aspirin; Z79.899 Other long term (current) drug therapy; Z66 Do not resuscitate; Z51.5 Encounter for palliative care
CPT/HCPCS: 36415; 51702; 70450; 70450-26; 70553; 70553-26; 71010; 71010-26; 71275; 71275-26; 72125; 72125-26; 73501-26-RT; 73501-RT; 73700-26-RT; 73700-RT; 80053; 81001; 82550; 83735; 83880; 84484; 85025; 85610; 93005; 94664; 96361; 96374; 96375; 99285; 99285-25; A9270-GY; A9577; J1170; J2060; J2270; J3010; J3490; J7030; J7040; J7042; J7050; Q9967